=== PATIENT | female | born 1935 | race Caucasian/White ===

== ENCOUNTER 2017-10-26 06:58 | Day surgery (SDC) | payer MEDICARE, SELFPAY ==
[2017-10-26] VITALS (7 sets, daily range): BP systolic 91–147; BP diastolic 59–87; PULSE 77–84; RESP 16; TEMP 36.2–37.1; O2SAT 97–100; BMI 38.7
--- NOTE | 2017-10-26 | IMM_PTH ---
PATIENT: MOOKIE DELVALLE LOC: EN U#:[id number] AGE/SX: 81/F ROOM: RE10/26/[address]: Dr. Miguel Pizarro MD : 1935 BED: DIS: 10/26/2017 SPEC #: [id number] RECD: 10/27/17 12:57 STATUS: TOMAS SHANE #: [id number] DARCY: 10/26/17 00:[address]: Miguel Pizarro DEPT: IMMUNOHISTOCHEMISTRY RECD BY: Teresa Ruvalcaba ENTERED: 10/27/17 12:58 SP TYPE: IMMUNO OTHR DR: ARA Roblero Tissues: A - Stomach, NOS Procedures: H Pylori (initial) PHYSICIAN & INSTITUTION [place] [id number] SPECIMEN INFORMATION: Tissue Source: A ? Antrum biopsy Clinical Info: Positive colorectal Cologuard test Specimen Number: [id number] CPT code: 65771 METHODOLOGY: Deparaffinized sections of prefer/formalin-fixed tissue or PAP/DQ stained slides are incubated with monoclonal/polyclonal antibodies/oligonucleotide probes. Localization is made via biotin free immunoperoxidase method. Appropriate controls are performed and reacted as expected. Results on target cell population are indicated in the following table: RESULTS: ANTIBODY / CLONE RESULT Block A H Pylori (polyclonal) negative These tests were developed and their performance characteristics determined by [facility]. They may not have been cleared or approved by the [place]. Food and Drug Administration. The FDA has determined that such clearance or approval is not necessary. INTERPRETATION: A. Antrum, biopsy: Negative for Helicobacter pylori organisms. SJ:paz 10/28/17
--- NOTE | 2017-10-26 | EGD_PTH ---
PATIENT: MOOKIE DELVALLE LOC: EN U#:[id number] AGE/SX: 81/F ROOM: RE10/26/[address]: Dr. Miguel Pizarro MD : 1935 BED: DIS: 10/26/2017 SPEC #: [id number] RECD: 10/26/17 11:29 STATUS: DUARTERaymond SHANE #: [id number] DARCY: 10/26/17 00:[address]: Miguel Pizarro DEPT: SURGICAL PATHOLOGY RECD BY: Osman Singh ENTERED: 10/26/17 12:01 SP TYPE: EGD BIOPSY OT DR: ARA Roblero Tissues: A - Gastric mucous membrane B - Esophageal mucous membrane Procedures: Surgery Specimen Level IV HEADER OPERATION: EGD with biopsies PRE-OP DIAGNOSIS: Positive colorectal Cologuard test TISSUE SUBMITTED: A ? Antrum biopsy for H. pylori and path, B ? Distal esophagus biopsy MICROSCOPIC DIAGNOSIS A. Antral biopsy: Mild chronic active gastritis. B. Distal esophagus, biopsy: Fragments of squamous epithelium with mild chronic inflammation. JOSHUA:paz 10/27/17 COMMENT The results of immunohistochemistry for Helicobacter pylori will be reported separately ([id number]). MICROSCOPIC DESCRIPTION Slides are reviewed. GROSS DESCRIPTION A - Received in fixative is one container labeled with the patient's name and designated antrum biopsy. The specimen consists of two irregular fragments of light mckeon soft tissue that in aggregate measure 0.6 x 0.2 x 0.1 cm. The specimen is totally submitted in one cassette. B - Received in fixative is one container labeled with the patient's name and designated distal esophagus. The specimen consists of two irregular fragments of light mckeon soft tissue that in aggregate measure 0.3 x 0.2 x 0.1 cm. The specimen is totally submitted in one cassette. / JOSHUA:paz 10/26/17 TC:3 CPT: 61813 x2
--- NOTE | 2017-10-26 09:42 | PCM.OPRPT ---
Problem List (1) Positive colorectal cancer screening using Cologuard test Status: Acute Report of Operation Date of Procedure: 10/26/17 Pre-Operative Diagnosis: Cologuard positive Post-Operative Diagnosis: Small hiatal hernia, gastric bowel reflux, antral gastritis. Sigmoid and descending diverticulosis Surgery/Procedure Performed:: Esophagogastroduodenoscopy with biopsies. Colonoscopy Description of Surgical Findings:: Timeout and informed consent was obtained. 81-year-old female was taken to the endoscopy suite. Her oropharynx anesthetized with Cetacaine. She was placed in a left lateral decubitus position. Throughout both the upper and lower endoscopy in aliquots she received a total of 100 mg of Demerol and 100 mcg of fentanyl and 5 mg of Versed as intravenous sedation. The patient entered this procedure extraordinarily anxious Flexible gastroscope was inserted into the esophageal inlet. Proximal mid distal esophagus not remarkable. EG junction at 40 cm. Small hiatal hernia noted. Scope was advanced to the stomach were immediate bile staining of the stomach was noted. A minimal amount of antral erythema. The scope was advanced through the pylorus the first and second portions of duodenum were inspected this was not remarkable. Scope was withdrawn back in the stomach retroflexed and the cardia and small hiatal hernia noted. The cardiac greater and lesser curvatures were not remarkable other than the bile staining. Biopsy was obtained of the antrum. Excess fluid and air was aspirated free. The scope was withdrawn to the distal esophagus and distal esophageal biopsy was obtained. The scope was further withdrawn without additional abnormality. Biopsies were performed with cold forceps Digital rectal exam performed lax anal tone. No mass lesions. Leksell colonoscope inserted the rectum advanced through a tortuous sigmoid colon extensively involved with diverticulosis the scope was then advanced to the transverse colon and transabdominal pressure was required to get the scope to go to the ascending colon. With some effort the scope was advanced to the cecum. I felt that I did get good visualization of the cecum ileocecal valve area. Bowel prep was adequate there was liquid stool throughout the colon but it could be aspirated. The scope was carefully withdrawn from the cecum ascending colon transverse colon descending colon and sigmoid. There was extensive diverticulosis of the descending and sigmoid colon but I did not see any signs of inflammation. The scope was retroflexed within the rectum the anorectal verge inspected minimal hemorrhoidal findings. Excess fluid and air was aspirated free the procedure was completed with the patient tolerating it well. Impression Small hiatal hernia. Bile staining of the stomach with mild gastritis. Sigmoid and descending diverticulosis. I did not see any active signs of bleeding. Gastritis could correlate with blood loss. The patient will be notified of Pap smear results as they become available. The patient's previous colonoscopy was 2000. Next screening colonoscopy to be considered in 10 years. If the patient has persistent abdominal pain then could consider CT imaging Cc: Mely Elliott PA-C Medications were given at 0900. Upper scope was started at 0905. The upper endoscopy was completed at 0908. The colonoscopy started 0911. The cecum was reached at 09-4.46. The procedure was completed at 0933.45. Miguel Pizarro M.D., F.A.C.S. Type of Anesthesia:: IV Sedation
== END 2017-10-26 10:29 | disposition home or self-care (01) ==
LOC: EN 07:03 → AC 07:04
PROVIDERS: Family Provider Physician Assistant; PCP Physician Assistant; Visit Provider Surgery
PROC: 0DJD8ZZ Inspection of Lower Intestinal Tract, Via Natural or Artificial Opening Endoscopic (ICD-10-PCS; CPT 45378; principal; 2017-10-26 08:25)
DX: K57.30 Diverticulosis of large intestine without perforation or abscess without bleeding (principal); K44.9 Diaphragmatic hernia without obstruction or gangrene; K29.50 Unspecified chronic gastritis without bleeding; I10 Essential (primary) hypertension; M10.9 Gout, unspecified; M19.90 Unspecified osteoarthritis, unspecified site; K21.9 Gastro-esophageal reflux disease without esophagitis; Z79.899 Other long term (current) drug therapy; Z87.891 Personal history of nicotine dependence
CPT/HCPCS: 43239; G0121; 88305; 88342; 99152; 99153; J7120